=== PATIENT | male | born 1970 | race African-American/Black ===

== ENCOUNTER → 2019-05-23 | Outpatient (CLI) | payer OTHER ==
--- NOTE | 2019-05-23 15:12 | XR ---
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 Facet arthropathy lower lumba r spine. Mild degenerative disc disease L5-S1. Vertebral body heights are preserved. IMPRESSION: 1. Mild degenerative disc disease L5-S1 and some degenerative changes at a left L5-S1 assimilation mark anthony int. 2. No vertebral compression collapse or malalignment.
== END | disposition home or self-care (01) ==
LOC: LABWHC1 10:44
PROVIDERS: ATTEND Internal Medicine
DX: M51.37 Other intervertebral disc degeneration, lumbosacral region (principal); M47.817 Spondylosis without myelopathy or radiculopathy, lumbosacral region
CPT/HCPCS: 72100

== ENCOUNTER 2020-07-18 12:05 | Emergency (ER) | payer OTHER ==
[2020-07-18 12:22] VITALS: TEMP 97.8
[2020-07-18] MEDS ORDERED: ACET/COD 300 MG/30 MG STARTER PACK 6 TAB BTL PO STA (12:35)
[2020-07-18] MEDS ORDERED: HYDROmorphone 1 MG/ML 1 ML SYRINGE IM STA (12:35)
--- NOTE | 2020-07-18 12:39 | ED ---
General Adult HPI - General Chief complaint: Extremity Problem,Nontraumatic Stated complaint: rt leg numbness, nausea, vomiting Time Seen by Provider: 07/18/20 12:08 Source: patient, EMS, RN notes reviewed Mode of arrival: EMS Limitations: no limitations - History of Present Illness Initial comments: Patient is a pleasant 50-year-old male presenting to the emergency Department with complaints of right leg pain. Patient has had intermittent symptoms over the past 8 years since he broke his upper femur and had surgery. Symptoms have been acting up again on him over the past couple of weeks. Patient has seen his doctor for this multiple times. Patient states his doctor only give some Motrin for this. Patient denies weakness. Patient states there is some tingling however denies loss of sensation. No incontinence or retention of bowel or bladder. Patient denies any sciatic or back pain. No fever. Patient did get nauseated secondary to his pain. - Related Data Home Medications Medication Instructions Recorded Confirmed HYDROcodone/APAP 7.5-325MG [[place] 1 tab PO Q8HR PRN 03/28/14 01/22/15 7.5-325] Ibuprofen [Motrin] 400 mg PO Q6HR PRN 08/23/14 01/22/15 Previous Rx's Medication Instructions Recorded Acetaminophen-Codeine 300-30mg 1 each PO Q4H PRN #20 tablet 01/22/15 [Tylenol w/codeine #3] methylPREDNISolone [Medrol] 4 mg PO DIRECTED #1 tab.ds.pk 01/22/15 predniSONE [Deltasone] 20 mg PO BID #10 tab 07/18/20 Allergies Allergy/AdvReac Type Severity Reaction Status Date / Time milk Allergy Nausea & Verified 01/22/15 09:47 Vomiting PASTA Allergy Severe Nausea & Uncoded 01/22/15 09:47 Vomiting SNEEZING & SORE THROAT BLEACH Allergy Rash/Hives Uncoded 01/22/15 09:47 Review of Systems ROS Statement: Those systems with pertinent positive or pertinent negative responses have been documented in the HPI. ROS Other: All systems not noted in ROS Statement are negative. Constitutional: Denies: fever Eyes: Denies: eye pain ENT: Denies: ear pain Respiratory: Denies: cough Cardiovascular: Denies: chest pain Endocrine: Denies: fatigue Gastrointestinal: Denies: abdominal pain Genitourinary: Denies: dysuria Musculoskeletal: Reports: as per HPI. Denies: back pain Skin: Denies: rash Neurological: Denies: weakness Past Medical History Past Medical History: Hypertension, Osteoarthritis (OA) Additional Past Medical History / Comment(s): ,RT KNEE PAIN OFF & ON- SHARP @ [facility],. KIDNEY STONE 2010,SLIP & FALL AUG 2007-YULIYA HIP FX DX,. MIGRAINES, SHINGLES X2 HAD IT LAST IN 2001 History of Any Multi-Drug Resistant Organisms: None Reported Past Surgical History: Joint Replacement Additional Past Surgical History / Comment(s): LT HIP REPLACEMENT 06/2012. RT HIP REPLACEMENT 01/2013 Past Anesthesia/Blood Transfusion Reactions: No Reported Reaction Past Psychological History: Anxiety, Panic Disorder Past Alcohol Use History: None Reported Past Drug Use History: None Reported - Past Family History Father Family Medical History: Hypertension Mother Additional Family Medical History / Comment(s): ARTHRITS, KNEE SX General Exam Limitations: no limitations General appearance: alert, in no apparent distress Head exam: Present: normocephalic Eye exam: Present: normal appearance Neck exam: Present: normal inspection Respiratory exam: Present: normal lung sounds bilaterally Cardiovascular Exam: Present: regular rate, normal rhythm Expanded Peripheral pulses: 2+: Posterior Tibialis (R), Posterior Tibialis (L), Dorsalis Pedis (R), Dorsalis Pedis (L) GI/Abdominal exam: Present: soft. Absent: tenderness, guarding Extremities exam: Present: normal inspection. Absent: tenderness, calf tenderness Back exam: Present: normal inspection. Absent: tenderness, vertebral tenderness Neurological exam: Present: alert. Absent: motor sensory deficit Expanded Sensory exam: Lower Extremity Light Touch: Normal Motor strength exam: RUE: 5, LUE: 5, RLE: 5, LLE: 5 Eye Response: (4) open spontaneously Motor Response: (6) obeys commands Verbal Response: (5) oriented Psychiatric exam: Present: normal affect, normal mood Skin exam: Present: normal color Course Vital Signs 07/18/20 12:06 Temperature 97.8 F Pulse Rate 79 Respiratory 18 Rate Blood Pressure 151/100 O2 Sat by Pulse 92 L Oximetry Disposition Clinical Impression: Pain in right leg Disposition: HOME SELF-CARE Condition: Stable Instructions (If sedation given, give patient instructions): Leg Pain (ED) Additional Instructions: Please follow-up with primary care physician and your orthopedic surgeon in the next day or 2 for recheck. Return for weakness, loss of control of bowel or bladder, loss of sensation, worsening symptoms or any other concerns. Steroid prescription has been sent to your pharmacy Prescriptions: predniSONE [Deltasone] 20 mg PO BID #10 tab Is patient prescribed a controlled substance at d/c from ED?: No Referrals: Bienvenido Parker MD [Primary Care Provider] - 1-2 days Ortega White DO [Doctor of Osteopathic Medicine] - 1-2 days Time of Disposition: 12:41
[2020-07-18 12:54] VITALS: BP 141/98; PULSE 81; RESP 16
== END 2020-07-18 13:14 | disposition home or self-care (01) ==
LOC: EC 12:05
DX: M79.604 Pain in right leg (principal); M19.90 Unspecified osteoarthritis, unspecified site; Z91.011 Allergy to milk products; Z91.018 Allergy to other foods; Z91.048 Other nonmedicinal substance allergy status; Z96.643 Presence of artificial hip joint, bilateral
CPT/HCPCS: 99284; 96372; J1170

== ENCOUNTER → 2020-08-31 | Outpatient (CLI) | payer OTHER ==
--- NOTE | 2020-08-31 14:47 | MR ---
EXAMINATION TYPE: MR knee RT wo con DATE OF EXAM: 08/31/2020 COMPARISON: None HISTORY: R knee pain TECHNIQUE: Multiplanar, multisequence imaging of the right knee is performed without IV contrast. FINDINGS: MEDIAL MENISCUS: Anterior and posterior horns are intact without tear. LATERAL MENISCUS: Diminutive posterior horn lateral meniscus which may reflect chronic tear. Anterior horn is unremarkable. CRUCIATE LIGAMENTS: ACL tear of uncertain chronicity. PCL is intact. COLLATERAL LIGAMENTS: The medial collateral ligament and lateral collateral ligament complex are intact and unremarkable. EXTENSOR MECHANISM: Visualized quadriceps and patellar tendons are intact. EFFUSION: No significant suprapatellar joint effusion. POPLITEAL CYST: Multi septated Morrell's cyst measuring 2.2 cm. TRICOMPARTMENT SPACES: Mild narrowing medial tibiofemoral joint space. CARTILAGE: Intact BONE MARROW SIGNAL: 3 or 4 areas of abnormal signal within the distal femoral diaphysis and metaphyse al regions felt to reflect bone infarcts the largest of which measures 7.4 cm in length. OTHER: No additional significant abnormality is appreciated. IMPRESSION: 1. ACL tear of uncertain chronicity. 2. Probable chronic tear posterior horn lateral meniscus. 3. Morrell's cyst. 4. 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
== END | disposition home or self-care (01) ==
LOC: RADMRIMAIN 12:39
PROVIDERS: ATTEND Internal Medicine
DX: S83.511A Sprain of anterior cruciate ligament of right knee, initial encounter (principal)

== ENCOUNTER 2020-09-12 12:37 | Observation (INO) | payer OTHER ==
--- NOTE | 2020-09-12 13:00 | ED ---
General Adult HPI - General Chief complaint: Chest Pain Stated complaint: Chest Pain Time Seen by Provider: 09/12/20 12:38 Source: patient, RN notes reviewed, old records reviewed Mode of arrival: EMS Limitations: no limitations - History of Present Illness Initial comments: 50-year-old male presenting for evaluation of chest pain. Patient had left-sharif ed chest pain radiating to the left arm with associated nausea. No diaphoresis. No vomiting. Pain began approximately one hour prior to arrival while at rest. There is no previous history of CAD. No associated dyspnea. Patient chest pain-free at the time my evaluation after being given aspirin and nitroglycerin by EMS. He had a previous stress test in 2014 which was reported as negative. No cough or fever. - Related Data Home Medications Medication Instructions Recorded Confirmed DULoxetine HCL [Cymbalta] 60 mg PO DAILY 09/12/20 09/12/20 Metoprolol Succinate (ER) [Toprol 50 mg PO BID 09/12/20 09/12/20 Xl] Pantoprazole Sodium [Protonix] 40 mg PO DAILY 09/12/20 09/12/20 Allergies Allergy/AdvReac Type Severity Reaction Status Date / Time milk Allergy Nausea & Verified 09/12/20 13:12 Vomiting PASTA Allergy Severe Nausea & Uncoded 09/12/20 13:12 Vomiting SNEEZING & SORE THROAT BLEACH Allergy Rash/Hives Uncoded 09/12/20 13:12 Review of Systems ROS Statement: Those systems with pertinent positive or pertinent negative responses have been documented in the HPI. ROS Other: All systems not noted in ROS Statement are negative. Past Medical History Past Medical History: Hypertension, Osteoarthritis (OA) Additional Past Medical History / Comment(s): ,RT KNEE PAIN OFF & ON- SHARP @ [facility],. KIDNEY STONE 2010,SLIP & FALL AUG 2007-YULIYA HIP FX DX,. MIGRAINES, SHINGLES X2 HAD IT LAST IN 2001 History of Any Multi-Drug Resistant Organisms: None Reported Past Surgical History: Joint Replacement Additional Past Surgical History / Comment(s): LT HIP REPLACEMENT 06/2012. RT HIP REPLACEMENT 01/2013 Past Anesthesia/Blood Transfusion Reactions: No Reported Reaction Past Psychological History: Anxiety, Panic Disorder Smoking Status: Former smoker Past Alcohol Use History: Occasional Past Drug Use History: None Reported - Past Family History Father Family Medical History: Hypertension Mother Additional Family Medical History / Comment(s): ARTHRITS, KNEE SX General Exam Limitations: no limitations General appearance: alert, in no apparent distress Head exam: Present: atraumatic, normocephalic Eye exam: Present: normal appearance, PERRL ENT exam: Present: normal exam Neck exam: Present: normal inspection. Absent: tenderness, meningismus Respiratory exam: Present: normal lung sounds bilaterally. Absent: respiratory distress, wheezes Cardiovascular Exam: Present: regular rate, normal rhythm GI/Abdominal exam: Present: soft. Absent: distended, tenderness, guarding Extremities exam: Present: normal inspection, normal capillary refill. Absent: pedal edema Neurological exam: Present: alert, oriented X3, CN II-XII intact. Absent: motor sensory deficit Psychiatric exam: Present: normal affect, normal mood Skin exam: Present: warm, dry, intact. Absent: cyanosis, diaphoretic Course Vital Signs 09/12/20 09/12/20 09/12/20 12:38 12:42 13:00 Temperature 98.0 F Pulse Rate 93 92 91 Respiratory 18 18 16 Rate Blood Pressure 141/100 141/100 O2 Sat by Pulse 97 83 L 97 Oximetry 09/12/20 13:30 Temperature Pulse Rate 86 Respiratory 18 Rate Blood Pressure 135/92 O2 Sat by Pulse 99 Oximetry - Reevaluation(s) Reevaluation #1: 09/12/20 12:[address] Hernandez who is able to evaluate the EKG, he does not see any ST segment elevation, recommends usual treatment for ACS. Reevaluation #2: 09/12/20 13:30 Patient reevaluated, resting comfortably, chest pain-free. Cardiology is in the room evaluating the patient. EKG Findings - EKG Comments: EKG Findings:: First EKG at 1238, normal sinus rhythm, T-wave in reality in the inferior leads, 3 and aVF, question ST segment elevation in V2 and V3, no reciprocal ST segment depression. Rate of 93, RI interval 124, QRS duration 88, QTC 420, repeat EKG. At 1246, unchanged, normal sinus rhythm, persistent T- wave inversion in lead 3 and aVF, no ST segment depression, rate of 90, RI interval 126, QRS duration 88, QTC 4:30 Medical Decision Making - Medical Decision Making 50-year-old male presenting with chest pain, rating to the left arm. EKG sinus rhythm, there was concern for ischemic changes and this was discussed with cardiology, recommend heparin, this has been initiated emergency partner. Patient given aspirin nitroglycerin by EMS prior to arrival. He remains chest pain-free while in the emergency department. Chest x-ray negative for acute cardiopulmonary findings. Laboratory testing does reveal stable hemoglobin, normal electrolytes, he has a transaminitis and does admit to daily alcohol consumption. No abdominal pain. No abdominal tenderness. Patient has a negative initial troponin, he will be admitted with cardiology on consultation. Case is discussed with the admitting physician Dr. Mazariegos. - Lab Data Result diagrams: 09/12/20 12:45 09/12/20 12:45 Lab Results 09/12/20 09/12/20 09/12/20 Range/Units 12:45 12:45 12:45 WBC 3.4 L (3.8-10.6) k/uL RBC 3.99 L (4.30-5.90) m/uL Hgb 13.7 (13.0-17.5) gm/dL Hct 39.7 (39.0-53.0) % MCV 99.4 (80.0-100.0) fL MCH 34.3 (25.0-35.0) pg MCHC 34.5 (31.0-37.0) g/dL RDW 12.2 (11.5-15.5) % Plt Count 195 (150-450) k/uL MPV 7.3 Neutrophils % 65 % Lymphocytes % 22 % Monocytes % 5 % Eosinophils % 5 % Basophils % 1 % Neutrophils # 2.2 (1.3-7.7) k/uL Lymphocytes # 0.8 L (1.0-4.8) k/uL Monocytes # 0.2 (0-1.0) k/uL Eosinophils # 0.2 (0-0.7) k/uL Basophils # 0.0 (0-0.2) k/uL PT 9.8 (9.0-12.0) sec INR 0.9 (<1.2) APTT 22.0 (22.0-30.0) sec Sodium 135 L (137-145) mmol/L Potassium 4.9 (3.5-5.1) mmol/L Chloride 98 (98-107) mmol/L Carbon Dioxide 29 (22-30) mmol/L Anion Gap 8 mmol/L BUN 6 L (9-20) mg/dL Creatinine 0.96 (0.66-1.25) mg/dL Est GFR (CKD-EPI)AfAm >90 (>60 ml/min/1.73 sqM) Est GFR (CKD-EPI)NonAf >90 (>60 ml/min/1.73 sqM) Glucose 113 H (74-99) mg/dL Calcium 9.4 (8.4-10.2) mg/dL Magnesium 2.0 (1.6-2.3) mg/dL Total Bilirubin 1.3 (0.2-1.3) mg/dL AST 379 H (17-59) U/L ALT 196 H (4-49) U/L Alkaline Phosphatase 88 (38-126) U/L Troponin I (0.000-0.034) ng/mL NT-Pro-B Natriuret Pep pg/mL Total Protein 8.1 (6.3-8.2) g/dL Albumin 4.3 (3.5-5.0) g/dL Amylase (30-110) U/L Lipase (23-300) U/L 09/12/20 09/12/20 09/12/20 Range/Units 12:45 12:45 12:45 WBC (3.8-10.6) k/uL RBC (4.30-5.90) m/uL Hgb (13.0-17.5) gm/dL Hct (39.0-53.0) % MCV (80.0-100.0) fL MCH (25.0-35.0) pg MCHC (31.0-37.0) g/dL RDW (11.5-15.5) % Plt Count (150-450) k/uL MPV Neutrophils % % Lymphocytes % % Monocytes % % Eosinophils % % Basophils % % Neutrophils # (1.3-7.7) k/uL Lymphocytes # (1.0-4.8) k/uL Monocytes # (0-1.0) k/uL Eosinophils # (0-0.7) k/uL Basophils # (0-0.2) k/uL PT (9.0-12.0) sec INR (<1.2) APTT (22.0-30.0) sec Sodium (137-145) mmol/L Potassium (3.5-5.1) mmol/L Chloride (98-107) mmol/L Carbon Dioxide (22-30) mmol/L Anion Gap mmol/L BUN (9-20) mg/dL Creatinine (0.66-1.25) mg/dL Est GFR (CKD-EPI)AfAm (>60 ml/min/1.73 sqM) Est GFR (CKD-EPI)NonAf (>60 ml/min/1.73 sqM) Glucose (74-99) mg/dL Calcium (8.4-10.2) mg/dL Magnesium (1.6-2.3) mg/dL Total Bilirubin (0.2-1.3) mg/dL AST (17-59) U/L ALT (4-49) U/L Alkaline Phosphatase (38-126) U/L Troponin I <0.012 (0.000-0.034) ng/mL NT-Pro-B Natriuret Pep 24 pg/mL Total Protein (6.3-8.2) g/dL Albumin (3.5-5.0) g/dL Amylase 43 (30-110) U/L Lipase 140 (23-300) U/L Disposition Clinical Impression: Unstable angina pectoris Disposition: ADMITTED IP TO THIS [facility] Condition: Stable Is patient prescribed a controlled substance at d/c from ED?: No Decision to Admit Reason: Admit from EC Decision Date: 09/12/20 Decision Time: 15:09
[2020-09-12 13:02] LABS: Basophils % (A) 1 %; Eosinophils # (A) 0.2 k/uL (0-0.7); Eosinophils % (A) 5 %; HCT 39.7 % (39.0-53.0); HGB 13.7 gm/dL (13.0-17.5); Lymphocytes # (A) 0.8 k/uL (1.0-4.8); Lymphocytes % (A) 22 %; MCH 34.3 pg (25.0-35.0); MCHC 34.5 g/dL (31.0-37.0); MCV 99.4 fL (80.0-100.0); Mean Platelet Volume 7.3; Monocytes # (A) 0.2 k/uL (0-1.0); Monocytes % (A) 5 %; Neutrophils # (A) 2.2 k/uL (1.3-7.7); Neutrophils % (A) 65 %; Platelet Count 195 k/uL (150-450); RBC 3.99 m/uL (4.30-5.90); RDW 12.2 % (11.5-15.5); WBC 3.4 k/uL (3.8-10.6)
[2020-09-12 13:14] LABS: ALT 196 U/L (4-49); African American GFR (CKD) >90 (>60 ml/min/1.73 sqM); Anion Gap 8 mmol/L; Blood Urea Nitrogen 6 mg/dL (9-20); Calcium 9.4 mg/dL (8.4-10.2); Carbon Dioxide 29 mmol/L (22-30); Chloride 98 mmol/L (98-107); Glucose 113 mg/dL (74-99); Non-African American GFR(CKD) >90 (>60 ml/min/1.73 sqM); Sodium 135 mmol/L (137-145); Total Bilirubin 1.3 mg/dL (0.2-1.3)
[2020-09-12 13:19] LABS: AST 379 U/L (17-59); Albumin 4.3 g/dL (3.5-5.0); Alkaline Phosphatase 88 U/L (38-126); Potassium 4.9 mmol/L (3.5-5.1); Total Protein 8.1 g/dL (6.3-8.2)
[2020-09-12 13:28] LABS: INR 0.9 (<1.2); Prothrombin Time 9.8 sec (9.0-12.0)
[2020-09-12] MEDS ORDERED: HEPARIN SODIUM,PORCINE 5,000 UNIT/ML 1 ML VIAL IV PRN (13:29)
[2020-09-12] MEDS ORDERED: HEPARIN SODIUM,PORCINE 5,000 UNIT/ML 1 ML VIAL IV ONE (13:29)
[2020-09-12] MEDS ORDERED: HEPARIN SOD,PORK IN 0.45% NACL 25,000 UNIT in 0.45% NACL 1 250ML.BAG IV SCH (13:30)
[2020-09-12] MEDS ORDERED: ONDANSETRON 4 MG/2 ML VIAL IVP PRN (14:00)
[2020-09-12] MEDS ORDERED: ACETAMINOPHEN TAB 325 MG TAB PO PRN (14:00)
[2020-09-12] MEDS ORDERED: NALOXONE 0.4 MG/ML 1 ML VIAL IV PRN (14:00)
[2020-09-12] MEDS ORDERED: MORPHINE SULFATE 4 MG/ML SYRINGE IV PRN (14:00)
[2020-09-12 14:01] LABS: Amylase 43 U/L (30-110); Lipase 140 U/L (23-300)
[2020-09-12] MEDS: NITROGLYCERIN OINT 1 INCH/GM PACKET TOPICAL SCH ×2 (14:04→22:04)
--- NOTE | 2020-09-12 14:38 | XR ---
EXAMINATION TYPE: XR chest 1V portable DATE OF EXAM: 09/12/2020 COMPARISON: Chest x-ray August 22, 2014 HISTORY: Chest pain and left arm numbness TECHNIQUE: Single frontal view of the chest is obtained. FINDINGS: Diminished inspiration on current study. There is no suspicious new focal air space opacity , pleural effusion, or pneumothorax seen. The cardiac silhouette size remains within normal limits. Multiple overlying EKG leads are in current study. The osseous structures are intact. IMPRESSION: Poor inspiration, no acute process.
--- NOTE | 2020-09-12 14:52 | US ---
EXAMINATION TYPE: US gallbladder DATE OF EXAM: 09/12/2020 COMPARISON: None CLINICAL HISTORY: 50-year-old male pain/transaminitis. 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 FINDINGS: EXAM MEASUREMENTS: Liver Length: 16.2 cm Gallbladder Wall: 0.2 cm CBD: 0.3 cm Right Kidney: 13.4 x 5.7 x 4.3 cm Pancreas: Only a small portion of the pancreatic body is seen. Remainder is obscured by shadowing fr om bowel gas. Liver: Echogenic and attenuating. Large left lobe extends far to the left of midline Gallbladder: Distended to the upper limits of normal at 8 x 3.4 cm. No wall thickening, shadowing ca lculi, or surrounding fluid. Evidence for sonographic Edwards's sign: no CBD: wnl Right Kidney: No hydronephrosis. IMPRESSION: 1. Moderate to severe hepatic steatosis. Correlate with LFTs, liver profile, and patient risk factors . 2. No gallstones or biliary ductal dilatation. 3. Limited visualization of the pancreas.
--- NOTE | 2020-09-12 16:19 | P.CRDCN ---
History of Present Illness Consult date: 09/12/20 History of present illness: CHIEF COMPLAINT: Chest pain HISTORY OF PRESENT ILLNESS: This is a 50-year-old male with a past medical history significant for hypertension, nicotine dependence, and daily alcohol use. Patient does not follow with a counselor aide. We have been asked to see the patient in consultation for chest pain. Patient examined this afternoon in the emergency room. Patient states he was sitting at home talking to his girlfriend when he began having a stabbing pain in his left shoulder. He states the pain then radiated to his left armpit and left chest. He denied any nausea or vomiting. Denied shortness of breath. Denied dizziness or lightheadedness. He states the pain was not worse with deep inspiration. He does report increased pain when he was moving his left arm. He states the pain lasted for approximately one hour and then he called EMS. Patient received aspirin and sublingual nitro in route to the hospital which relieved his pain. At the time of examination, the patient denies any further episodes of chest pain. Patient denies any family history of coronary artery disease. Patient reports drinking 2 beers daily on the weekdays and 3-4 beers a day on the weekends. He reports he was smoking 2-3 cigars a day but quit 3 weeks ago. DIAGNOSTICS: EKG reveals sinus mechanism with T-wave inversions inferiorly Chest xray negative for acute process Laboratory data: WBC 3.4. Hemoglobin 13.7. Platelet count 195. Sodium 135. Potassium 4.9. BUN 6. Creatinine 0.96. Magnesium 2.0. Troponin negative 1. BNP 24. AST 379. ALT 196. Current home cardiac medications include metoprolol succinate 50 kg twice a day Echocardiogram completed in 2014 revealed ejection fraction 55-60% Patient underwent stress echocardiogram in 2015 which was negative for stress- induced ischemia REVIEW OF SYSTEMS: At the time of my exam: CONSTITUTIONAL: Denies fever or chills. HEENT: Denies blurred vision, vision changes, or eye pain. Denies hemoptysis CARDIOVASCULAR: Denies chest pain, orthopnea, PND or palpitations RESPIRATORY: No shortness of breath. GASTROINTESTINAL: Denies abdominal pain. Denies nausea or vomiting. HEMATOLOGIC: Denies bleeding disorders. GENITOURINARY: Denies any blood in urine. SKIN: Denies pruitis. Denies rash. PHYSICAL EXAM: VITAL SIGNS: Reviewed. GENERAL: Well-developed in no acute distress. HEENT: Head is normocephalic. Pupils are equal, round. Sclerae anicteric. Mucous membranes of the mouth are moist. Neck supple. No JVD or thyromegaly LUNGS: Respirations even and unlabored. Lungs essentially clear to auscultation bilaterally. HEART: Regular rate and rhythm. S1 and S2 heard. ABDOMEN: Soft. Nondistended. Nontender. EXTREMITIES: Normal range of motion. No clubbing or cyanosis. Peripheral pulses intact. No lower extremity edema NEUROLOGIC: Awake and alert. Oriented x 3. ASSESSMENT: Unstable angina Hypertension Transaminitis, likely secondary to daily alcohol use Daily alcohol use Former daily cigar smoker, quit 3 weeks ago PLAN: Obtain 2-D echo to assess cardiac structure and function Continue to trend troponin levels Begin IV heparin Add nitro paste 0.5 inches every 8 hours and aspirin 81mg daily Resume home dose of metoprolol succinate Obtain lipid panel Continue to monitor LFTs Absence from alcohol recommended Further recommendations pending patient's course Nurse practitioner note has been reviewed by physician. Signing provider agrees with the documented findings, assessment, and plan of care. Past Medical History Past Medical History: Hypertension, Osteoarthritis (OA) Additional Past Medical History / Comment(s): ,RT KNEE PAIN OFF & ON- SHARP @ [facility],. KIDNEY STONE 2010,SLIP & FALL AUG 2007-YULIYA HIP FX DX,. MIGRAINES, SHINGLES X2 HAD IT LAST IN 2001 History of Any Multi-Drug Resistant Organisms: None Reported Past Surgical History: Joint Replacement Additional Past Surgical History / Comment(s): LT HIP REPLACEMENT 06/2012. RT HIP REPLACEMENT 01/2013 Past Anesthesia/Blood Transfusion Reactions: No Reported Reaction Past Psychological History: Anxiety, Panic Disorder Smoking Status: Former smoker Past Alcohol Use History: Occasional Past Drug Use History: None Reported - Past Family History Father Family Medical History: Hypertension Mother Additional Family Medical History / Comment(s): ARTHRITS, KNEE SX Medications and Allergies Home Medications Medication Instructions Recorded Confirmed Type DULoxetine HCL [Cymbalta] 60 mg PO DAILY 09/12/20 09/12/20 History Metoprolol Succinate (ER) [Toprol 50 mg PO BID 09/12/20 09/12/20 History Xl] Pantoprazole Sodium [Protonix] 40 mg PO DAILY 09/12/20 09/12/20 History Allergies Allergy/AdvReac Type Severity Reaction Status Date / Time milk Allergy Nausea & Verified 09/12/20 13:12 Vomiting PASTA Allergy Severe Nausea & Uncoded 09/12/20 13:12 Vomiting SNEEZING & SORE THROAT BLEACH Allergy Rash/Hives Uncoded 09/12/20 13:12 Physical Exam Vitals: Vital Signs Temp Pulse Resp BP Pulse Ox 09/12/20 15:30 91 16 131/95 96 09/12/20 15:00 92 18 142/92 99 09/12/20 14:30 86 18 100 09/12/20 14:00 84 18 140/96 99 09/12/20 13:30 86 18 135/92 99 09/12/20 13:00 91 16 141/100 97 09/12/20 12:42 92 18 83 L 09/12/20 12:38 98.0 F 93 18 141/100 97 Intake and Output 09/12/20 09/12/20 09/12/20 06:59 14:59 22:59 Other: Weight 100.5 kg Results 09/12/20 12:45 09/12/20 12:45 Cardiac Enzymes 09/12/20 09/12/20 Range/Units 12:45 12:45 AST 379 H (17-59) U/L Troponin I <0.012 (0.000-0.034) ng/mL Coagulation 09/12/20 Range/Units 12:45 PT 9.8 (9.0-12.0) sec APTT 22.0 (22.0-30.0) sec CBC 09/12/20 Range/Units 12:45 WBC 3.4 L (3.8-10.6) k/uL RBC 3.99 L (4.30-5.90) m/uL Hgb 13.7 (13.0-17.5) gm/dL Hct 39.7 (39.0-53.0) % Plt Count 195 (150-450) k/uL Comprehensive Metabolic Panel 09/12/20 Range/Units 12:45 Sodium 135 L (137-145) mmol/L Potassium 4.9 (3.5-5.1) mmol/L Chloride 98 (98-107) mmol/L Carbon Dioxide 29 (22-30) mmol/L BUN 6 L (9-20) mg/dL Creatinine 0.96 (0.66-1.25) mg/dL Glucose 113 H (74-99) mg/dL Calcium 9.4 (8.4-10.2) mg/dL AST 379 H (17-59) U/L ALT 196 H (4-49) U/L Alkaline Phosphatase 88 (38-126) U/L Total Protein 8.1 (6.3-8.2) g/dL Albumin 4.3 (3.5-5.0) g/dL Current Medications Generic Name Dose Route Start Last Admin Trade Name Freq PRN Reason Stop Dose Admin Acetaminophen 650 mg 09/12/20 14:00 Acetaminophen Tab 325 Mg Tab PO Q6HR PRN Mild Pain or Fever > 100.5 Aspirin 81 mg 09/13/20 09:00 Aspirin 81 Mg PO DAILY ULISSES Heparin Sodium (Porcine) 0 unit 09/12/20 13:29 Heparin Sodium,Porcine 5,000 Unit/Ml 1 Ml Vial IV PER PROTOCOL PRN Low PTT Protocol Heparin Sodium/Sodium Chloride 250 mls @ 10 mls/hr 09/12/20 13:30 09/12/20 14:01 25,000 unit/ Sodium Chloride IV 9.95 units/kg/hr .Q24H ULISSES 10 mls/hr Administration Protocol 9.95 UNITS/KG/HR Metoprolol Succinate 50 mg 09/12/20 21:00 Metoprolol Succinate (Er) 50 Mg Tab.Er.24h PO BID ULISSES Morphine Sulfate 4 mg 09/12/20 14:00 Morphine Sulfate 4 Mg/Ml Syringe IV Q4HR PRN Severe Pain Naloxone HCl 0.2 mg 09/12/20 14:00 Naloxone 0.4 Mg/Ml 1 Ml Vial IV Q2M PRN Opioid Reversal Nitroglycerin 0.5 inch 09/12/20 14:00 09/12/20 14:04 Nitroglycerin Oint 1 Inch/Gm Packet TOPICAL 0.5 inch Q8H ULISSES Administration Ondansetron HCl 4 mg 09/12/20 14:00 Ondansetron 4 Mg/2 Ml Vial IVP Q8HR PRN Nausea And Vomiting Intake and Output 09/12/20 09/12/20 09/12/20 06:59 14:59 22:59 Other: Weight 100.5 kg Patient Weight 09/13/20 06:59 Weight 100.5 kg 09/12/20 12:45 09/12/20 12:45
[2020-09-12 18:35] LABS: Cholesterol 168 mg/dL (<200); HDL Cholesterol 55 mg/dL (40-60); LDL Cholesterol,Calculated 77 mg/dL (0-99); Triglycerides 181 mg/dL (<150)
[2020-09-12] MEDS ORDERED: METOPROLOL TARTRATE 12.5 MG TAB PO SCH (21:00)
[2020-09-12] MEDS ORDERED: LORazepam 2 MG/ML INJ IV PRN (21:44)
[2020-09-12] MEDS ORDERED: Potassium Replacement Protocol 1 EACH MISC MISCELLANE PRN (21:45)
[2020-09-12] MEDS ORDERED: Magnesium Replacement Protocol 1 EACH MISC MISCELLANE PRN (21:45)
--- NOTE | 2020-09-12 21:55 | P.HPIM ---
History of Present Illness This is a pleasant 50 old -[place] male with past medical history of hypertension and osteoarthritis. He is a patient of Dr. Parker. Presents because of chest pain of one-day duration in the left upper chest radiating to the left shoulder prepped like 4/10 in severity, nonspecific in character, not associated with dyspnea or sweating or palpitation or dizziness. patient denies history of trauma or fall. He had similar pain in 2004 at that time he was treated conservatively and thought it is due to stress He denies any other complaints no dizziness, no abdominal pain, no diarrhea or change in urine habits. No fever. No coughing. He is a cigar smoker but quit 1 week ago, he drinks 3 beers a day with no leak or or wine. No illicit drugs Hemodynamically stable. He has mild low white cell count of 3.4K. Rest of CBC is unremarkable. Liver enzymes are elevated with AST 379 and ALT 196. Troponin Are Negative with Less Than 0.012. Lipase Is Normal Chest x-ray: No acute process. EKG showed normal sinus rhythm at 90 BPM with no significant ST-T changes except for mild T-wave and conversion and lead III Gallbladder ultrasound showing moderate to severe hepatic steatosis Review of Systems CONSTITUTIONAL: No fever, no malaise, no fatigue. HEENT: No recent visual problems or hearing problems. Denied any sore throat. CARDIOVASCULAR: No orthopnea, PND, no palpitations, no syncope. PULMONARY: No shortness of breath, no cough, no hemoptysis. GASTROINTESTINAL: No diarrhea, no nausea, no vomiting, no abdominal pain. Normoactive bowel sounds. NEUROLOGICAL: No headaches, no weakness, no numbness. HEMATOLOGICAL: Denies any bleeding or petechiae. GENITOURINARY: Denies any burning micturition, frequency, or urgency. MUSCULOSKELETAL/RHEUMATOLOGICAL: Denies any joint pain, swelling, or any muscle pain. ENDOCRINE: Denies any polyuria or polydipsia. Past Medical History Past Medical History: Hypertension, Osteoarthritis (OA) Additional Past Medical History / Comment(s): ,RT KNEE PAIN OFF & ON- SHARP @ TIMES,. KIDNEY STONE 2010,SLIP & FALL AUG 2007-YULIYA HIP FX DX,. MIGRAINES, SHINGLES X2 HAD IT LAST IN 2001 History of Any Multi-Drug Resistant Organisms: None Reported Past Surgical History: Joint Replacement Additional Past Surgical History / Comment(s): LT HIP REPLACEMENT 06/2012. RT HIP REPLACEMENT 01/2013 Past Anesthesia/Blood Transfusion Reactions: No Reported Reaction Past Psychological History: Anxiety, Panic Disorder Smoking Status: Former smoker Past Alcohol Use History: Occasional Past Drug Use History: None Reported - Past Family History Father Family Medical History: Hypertension Mother Additional Family Medical History / Comment(s): ARTHRITS, KNEE SX Medications and Allergies Home Medications Medication Instructions Recorded Confirmed Type DULoxetine HCL [Cymbalta] 60 mg PO DAILY 09/12/20 09/12/20 History Metoprolol Succinate (ER) [Toprol 50 mg PO BID 09/12/20 09/12/20 History Xl] Pantoprazole Sodium [Protonix] 40 mg PO DAILY 09/12/20 09/12/20 History Allergies Allergy/AdvReac Type Severity Reaction Status Date / Time milk Allergy Nausea & Verified 09/12/20 13:12 Vomiting PASTA Allergy Severe Nausea & Uncoded 09/12/20 13:12 Vomiting SNEEZING & SORE THROAT BLEACH Allergy Rash/Hives Uncoded 09/12/20 13:12 Physical Exam Vitals: Vital Signs Temp Pulse Resp BP Pulse Ox 09/12/20 13:30 86 18 135/92 99 09/12/20 13:00 91 16 141/100 97 09/12/20 12:42 92 18 83 L 09/12/20 12:38 98.0 F 93 18 141/100 97 Intake and Output 09/11/20 09/12/20 09/12/20 22:59 06:59 14:59 Other: Weight 100.5 kg GENERAL: The patient is alert and oriented x3, not in any acute distress. Well developed, well nourished. HEENT: Pupils are round and equally reacting to light. EOMI. No scleral icterus. No conjunctival pallor. Normocephalic, atraumatic. No pharyngeal erythema. No thyromegaly. CARDIOVASCULAR: S1 and S2 present. No murmurs, rubs, or gallops. PULMONARY: Chest is clear to auscultation, no wheezing or crackles. ABDOMEN: Soft, nontender, nondistended, normoactive bowel sounds. No palpable organomegaly. MUSCULOSKELETAL: No joint swelling or deformity. EXTREMITIES: No cyanosis, clubbing, or pedal edema. NEUROLOGICAL: Gross neurological examination did not reveal any focal deficits. SKIN: No rashes. no petechiae. Results CBC & Chem 7: 09/12/20 12:45 09/12/20 12:45 Labs: Abnormal Lab Results - Last 24 Hours (Table) 09/12/20 09/12/20 Range/Units 12:45 12:45 WBC 3.4 L (3.8-10.6) k/uL RBC 3.99 L (4.30-5.90) m/uL Lymphocytes # 0.8 L (1.0-4.8) k/uL Sodium 135 L (137-145) mmol/L BUN 6 L (9-20) mg/dL Glucose 113 H (74-99) mg/dL AST 379 H (17-59) U/L ALT 196 H (4-49) U/L Assessment and Plan Assessment: Unstable angina Alcohol abuse Alcoholic hepatitis with AST 20 ALT ratio is 2:1 Nicotine use disorder Hypertension Osteoarthritis Plan: This is a pleasant 50 years old male who presents with unstable angina. Continue with heparin drip and aspirin as per cardiology recommendation. Check echocardiogram. Also we'll check a shoulder x-ray. Also we'll check acute hepatitis panel Labs and medication were reviewed.. Continue same treatment. Continue with symptomatic treatment. Resume home medication. Monitor lytes and vitals. DVT and GI prophylaxis. Further recommendationsas per clinical course of the patient DVT prophylaxis: heparin GI Prophylaxis: Pepcid Prognosis is guarded
[2020-09-12] MEDS: FAMOTIDINE 20 MG/2 ML VIAL IV SCH (22:03)
[2020-09-12] MEDS: METOPROLOL SUCCINATE (ER) 50 MG TAB.ER.24H PO SCH (22:03)
[2020-09-12] MEDS: THIAMINE 100 MG TAB PO SCH (22:03)
[2020-09-13] MEDS: NITROGLYCERIN OINT 1 INCH/GM PACKET TOPICAL SCH (05:13)
[2020-09-13 06:00] LABS: Hepatitis A Antibody IgM Non-Reactive (Non-Reactive); Hepatitis B Core IgM Non-Reactive (Non-Reactive); Hepatitis B Surface Antigen Non-Reactive (Non-Reactive); Hepatitis C IgG Antibody Non-Reactive (Non-Reactive)
--- NOTE | 2020-09-13 07:39 | XR ---
EXAMINATION TYPE: XR shoulder complete LT DATE OF EXAM: 09/13/2020 COMPARISON: NONE HISTORY: Pain TECHNIQUE: Shoulder examined in 3 projections FINDINGS: The humeral head articulates with the glenoid. The acromio-clavicular junction is normal. No acute fractures or dislocations are evident. A follow up study can be performed 7-10 days from acute trauma for continued pain. IMPRESSION: 1. Normal three-view left Shoulder
[2020-09-13 08:55] LABS: Basophils # (A) 0.03 X 10*3/uL (0.00-0.10); Basophils % (A) 0.8 %; Eosinophils % (A) 5.6 %; HCT 36.9 % (39.6-50.0); HGB 12.9 g/dL (13.0-17.0); Lymphocytes # (A) 1.08 X 10*3/uL (0.90-5.00); Lymphocytes % (A) 30.2 %; MCH 34.6 pg (27.0-32.0); MCV 98.9 fL (80.0-97.0); Mean Platelet Volume 10.7 fL (9.5-12.2); Monocytes # (A) 0.33 X 10*3/uL (0.20-1.00); Monocytes % (A) 9.2 %; Neutrophils # (A) 1.92 X 10*3/uL (1.80-7.70); Neutrophils % (A) 53.6 %; Platelet Count 194 X 10*3/uL (140-440); RBC 3.73 X 10*6/uL (4.40-5.60); RDW 11.9 % (11.5-14.5); WBC 3.58 X 10*3/uL (4.50-10.00)
[2020-09-13] MEDS ORDERED: ASPIRIN 81 MG PO SCH (09:00)
[2020-09-13] MEDS: METOPROLOL SUCCINATE (ER) 50 MG TAB.ER.24H PO SCH (09:23)
[2020-09-13] MEDS: THIAMINE 100 MG TAB PO SCH (10:20)
[2020-09-13] MEDS: FAMOTIDINE 20 MG/2 ML VIAL IV SCH (10:23)
--- NOTE | 2020-09-13 10:26 | P.PN ---
Subjective This is a pleasant 50-year-old -[place] male past medical history significant for hypertension, chronic nicotine dependence and daily alcohol intake. He is seen and examined sitting up in the emergency department in no acute distress. He has had no further symptoms of chest discomfort. He states his breathing is normal. Blood pressure 137/97 heart rate 90 afebrile maintaining oxygen saturation on room air. Laboratory data reviewed, cardiac enzymes negative 3. GENERAL: Well-appearing, well-nourished and in no acute distress. NECK: Supple without JVD or thyromegaly. LUNGS: Breath sounds clear to auscultation bilaterally. Respiration equal and unlabored. No wheezes, rales or rhonchi. HEART: Regular rate and rhythm without murmurs, rubs or gallops. S1 and S2 heard. EXTREMITIES: Normal range of motion, no edema. No clubbing or cyanosis. Peripheral pulses intact. ASSESSMENT Chest pain Transaminitis Hypertension Chronic nicotine dependence Daily alcohol intake PLAN An acute coronary event has been ruled out. Discontinue heparin infusion and Nitropaste. Proceed with stress echocardiogram to assess for stress-induced cardiac ischemia. Echocardiogram has been obtained and will be reviewed. If stress test is normal he may be discharged from a cardiac perspective in follow-up in the office with Dr. Small. Nurse Practitioner note has been reviewed, I agree with a documented findings and plan of care. Patient was seen and examined. Objective - Vital Signs Vital signs: Vital Signs Temp 98.0 F 09/12/20 12:38 Pulse 90 09/13/20 07:29 Resp 18 09/13/20 07:29 BP 137/97 09/13/20 07:29 Pulse Ox 97 09/13/20 07:29 Intake & Output 09/12/20 09/13/20 09/13/20 18:59 06:59 18:59 Intake Total 171.822 Balance 171.822 Weight 100.5 kg Intake: Intake, IV Titration 171.822 Amount Heparin Sod,Pork in 0.45% 171.822 NaCl 25,000 unit In 0.45 % NaCl 1 250ml.bag @ 9.95 UNITS/KG/HR 10 mls/hr IV [facility] Rx#:[id number] - Labs CBC & Chem 7: 09/13/20 04:00 09/12/20 12:45 Labs: Abnormal Lab Results - Last 24 Hours (Table) 09/12/20 09/12/20 09/12/20 Range/Units 12:45 12:45 17:41 WBC 3.4 L (3.8-10.6) k/uL RBC 3.99 L (4.30-5.90) m/uL Hgb (13.0-17.0) g/dL Hct (39.6-50.0) % MCV (80.0-97.0) fL MCH (27.0-32.0) pg Lymphocytes # 0.8 L (1.0-4.8) k/uL APTT (22.0-30.0) sec Sodium 135 L (137-145) mmol/L BUN 6 L (9-20) mg/dL Glucose 113 H (74-99) mg/dL AST 379 H (17-59) U/L ALT 196 H (4-49) U/L Triglycerides 181 H (<150) mg/dL 09/12/20 09/13/20 09/13/20 Range/Units 21:12 04:00 04:00 WBC 3.58 L (3.8-10.6) k/uL RBC 3.73 L (4.30-5.90) m/uL Hgb 12.9 L (13.0-17.0) g/dL Hct 36.9 L (39.6-50.0) % MCV 98.9 H (80.0-97.0) fL MCH 34.6 H (27.0-32.0) pg Lymphocytes # (1.0-4.8) k/uL APTT 32.1 H 88.6 H (22.0-30.0) sec Sodium (137-145) mmol/L BUN (9-20) mg/dL Glucose (74-99) mg/dL AST (17-59) U/L ALT (4-49) U/L Triglycerides (<150) mg/dL
[2020-09-13 10:48] LABS: Albumin 4.2 g/dL (3.80-4.90); Total Protein 6.9 g/dL (6.2-8.2)
[2020-09-13 10:49] LABS: African American GFR (CKD) 81.8 (60.0-200.0); Albumin/Globulin Ratio 1.56 (1.60-3.17); Anion Gap 9.7 mmol/L (4.00-12.00); Bilirubin, Conjugated 0.3 mg/dL (0.20-0.40); Bilirubin,Unconjugated 0.4 mg/dL; Calcium 8.7 mg/dL (8.7-10.3); Carbon Dioxide 24.3 mmol/L (21.6-31.8); Globulin 2.7 g/dL (1.6-3.3); Magnesium 2.1 mg/dL (1.5-2.4); Non-African American GFR(CKD) 70.6 (60.0-200.0); Potassium 4.5 mmol/L (3.5-5.5); Total Bilirubin 0.7 mg/dL (0.3-1.2)
[2020-09-13 11:18] VITALS: BP 145/90; PULSE 83; RESP 16; TEMP 98.5
--- NOTE | 2020-09-13 12:12 | ECHOF ---
Referral Reason:chest pain MEASUREMENTS -------- HEIGHT: 182.9 cm WEIGHT: 90.7 kg BP: RVIDd: 2.5 cm (< 3.3) IVSd: 1.0 cm (0.6 - 1.1) LVIDd: 4.2 cm (3.9 - 5.3) LVPWd: 1.2 cm (0.6 - 1.1) IVSs: 1.5 cm LVIDs: 2.6 cm LVPWs: 1.7 cm LAESV Index (A-L): 11.68 ml/m Ao Diam: 3.4 cm (2.0 - 3.7) AV Cusp: 2.0 cm (1.5 - 2.6) LA Diam: 2.3 cm (2.7 - 3.8) MV EXCURSION: 19.783 mm (> 18.000) MV EF SLOPE: 172 mm/s (70 - 150) EPSS: 1.6 cm MV E García: 0.74 m/s MV DecT: 185 ms MV A García: 0.80 m/s MV E/A Ratio: 0.93 RAP: 5.00 mmHg RVSP: 20.55 mmHg FINDINGS -------- Sinus rhythm. This was a technically adequate study. The left ventricular size is normal. There is borderline concentric left ventricular hypertrophy. Overall left ventricular systolic function is normal with, an EF between 55 - 60 %. The diastolic filling pattern is normal for the age of the patient 8.19. The right ventricle is normal in size. Normal LA size by volume 22+/-6 ml/m2. The right atrial size is normal. The aortic valve is trileaflet, and appears structurally normal. No aortic stenosis or regurgitation. The mitral valve is normal. There is trace mitral regurgitation. The tricuspid valve appears structurally normal. Trace tricuspid regurgitation present. Right terri tricular systolic pressure is normal at < 35 mmHg. There is no pulmonic regurgitation present. The aortic root size is normal. IVC Not well visulized. There is no pericardial effusion. CONCLUSIONS -------- 1. There is borderline concentric left ventricular hypertrophy. 2. Overall left ventricular systolic function is normal with, an EF between 55 - 60 %. 3. The aortic valve is trileaflet, and appears structurally normal. No aortic stenosis or regurgitati on. 4. There is trace mitral regurgitation. 5. Trace tricuspid regurgitation present. 6. There is no pericardial effusion. SHIPPING AND RECEIVING: Hortencia Lopez RDCS
--- NOTE | 2020-09-13 14:35 | ECHOS ---
STRESS ECHOCARDIOGRAM LUMASON: N/A Vial INDICATIONS: Chest pain MEDICATIONS: BASELINE HEART RATE: 88 BASELINE BLOOD PRESSURE: 133/77 MAXIMUM HEART RATE: 170 MAXIMUM BLOOD PRESSURE: 204/83 85% MPHR: 145 100% MPHR: 171 METS: 10.5 MAXIMUM STAGE REACHED: 3 TOTAL EXERCISE TIME: 9 minutes CLINICAL INFORMATION: Baseline rhythm is sinus mechanism, rate of 88, normal axis and intervals, normal electrocardiogram. Baseline blood pressure 133/77 mmHg. Patient exercised on Angel protocol for 9 minutes reaching peak rate 170 beats per minute which is equal to 99% maximum predicted heart rate. Peak blood pressure 204/83 mmHg. Test was terminated secondary to fatigue. There was no chest pain. Electrocardiograph monitoring revealed no evidence of diagnostic ischemic ST deviation. Baseline echocardiogram revealed normal wall motion. At peak exercise, there was normal wall motion augmentation with no hypokinesis or dyskinesis. CONCLUSION: 1. Average exercise tolerance with normal electrocardiograph response to exercise. 2. Normal stress echocardiogram with no evidence of stress-induced ischemia. MMODL / IJN: [id number] /
--- NOTE | 2020-09-13 23:24 | P.DS ---
Providers Date of admission: 09/12/20 14:30 Attending physician: Eulogio Mazariegos MD Consults: 09/12/20 14:01 Consult Physician Urgent Consulting Provider: Anthony Small Consult Reason/Comments: Unstable angina Do you want consulting provider notified?: Already Contacted Primary care physician: Elena Faria [facility] Course: Diagnoses: chest pain TO be Unstable angina on admission by citizenship teacher. Stress test was negative and chest pain is completely resolved prior to discharge Alcohol abuse Alcoholic hepatitis with AST 20 ALT ratio is 2:1 Nicotine use disorder Hypertension Osteoarthritis hospital course: This is a pleasant 50 old -[place] male with past medical history of hypertension and osteoarthritis. He is a patient of Dr. Parker. Presents because of chest pain of one-day duration in the left upper chest radiating to the left shoulder, not associated with dyspnea or sweating or palpitation or dizziness. patient denies history of trauma or fall. He had similar pain in 2004 at that time he was treated conservatively and thought it is due to stress He denies any other complaints no dizziness, no abdominal pain, no diarrhea or change in urine habits. No fever. No coughing. He a cigar smoker but quit 1 week ago, he drinks 3 beers a day with no liquor or or wine. He had elevated liver enzymes trending down slightly. Liver ultrasound: Severe hepatic steatosis, mostly related to alcohol. No gallbladder disease. Acute hepatitis panel was negative. However patient denies any abdominal symptoms, no nausea vomiting. He tolerates diet. Normal bowel movement. Under recommendation a citizenship teacher patient underwent stress test which was negative and patient was cleared for discharge by citizenship teacher On the day of discharge patient remains asymptomatic with his chest pain is completely resolved, no dyspnea. No change in urine or bowel habits. No fever. Patient states that his back to his baseline and he agrees to go home Problems and management plan were discussed with the patient and he verbalized understanding and acceptance Patient was found stable and can be discharged home however he needs follow-up as an outpatient. Patient was instructed to follow up with PCP Dr. Smart within one week and patient agrees. Patient also was instructed to follow up with citizenship teacher Dr. Donato in 2 weeks and he agrees Physical exam Gen: patient is a AAOx3, no distress CVS: S1-S2, RRR, no murmur Lungs: B/L CTA, no wheezing Abdomen: soft, no distention, no tenderness, positive bowel sounds Extremity: no leg edema or induration Time spent more than 35 minutes Patient Condition at Discharge: Stable Plan - Discharge Summary Discharge Rx Participant: No New Discharge Prescriptions: New Thiamine [Vitamin B-1] 100 mg PO DAILY #20 tab Continue Metoprolol Succinate (ER) [Toprol XL] 50 mg PO BID DULoxetine HCL [Cymbalta] 60 mg PO DAILY Pantoprazole Sodium [Protonix] 40 mg PO DAILY Discharge Medication List DULoxetine HCL [Cymbalta] 60 mg PO DAILY 09/12/20 [History] Metoprolol Succinate (ER) [Toprol XL] 50 mg PO BID 09/12/20 [History] Pantoprazole Sodium [Protonix] 40 mg PO DAILY 09/12/20 [History] Thiamine [Vitamin B-1] 100 mg PO DAILY #20 tab 09/13/20 [Rx] Follow up Appointment(s)/Referral(s): Bienvenido Parker MD [Primary Care Provider] - 09/20/20 1:40 pm Anthony Small MD [STAFF PHYSICIAN] - 2 Weeks (The office will call you with an appointment per Michelle) Patient Instructions/Handouts: Chest Pain (DC) Activity/Diet/Wound Care/Special Instructions: Heart healthy diet Activity is restricted until you see your doctor Discharge Disposition: HOME SELF-CARE
== END 2020-09-13 15:06 | disposition home or self-care (01) ==
LOC: EC 12:37 → 6NMEDSUR 14:30
PROVIDERS: ADMIT Internal Medicine; ATTEND Internal Medicine
DX: I20.0 Unstable angina (principal); K76.0 Fatty (change of) liver, not elsewhere classified; F10.10 Alcohol abuse, uncomplicated; K70.10 Alcoholic hepatitis without ascites; I10 Essential (primary) hypertension; M19.90 Unspecified osteoarthritis, unspecified site; G43.909 Migraine, unspecified, not intractable, without status migrainosus; M25.561 Pain in right knee; F41.0 Panic disorder [episodic paroxysmal anxiety]; F17.290 Nicotine dependence, other tobacco product, uncomplicated; Z79.899 Other long term (current) drug therapy; Z91.011 Allergy to milk products; Z91.018 Allergy to other foods; Z91.048 Other nonmedicinal substance allergy status; Z87.442 Personal history of urinary calculi; Z87.81 Personal history of (healed) traumatic fracture; Z96.643 Presence of artificial hip joint, bilateral; Z82.49 Family history of ischemic heart disease and other diseases of the circulatory system; Z82.61 Family history of arthritis
CPT/HCPCS: 96376 ×2; 96375; 93005 ×2; 96365; 96366 ×2; 99285; 36415; 93306; 93351; 83880; 80061; 80053; 80048; 80076; 80074; 82150; 83690; 83735 ×2; 84484; 85025 ×2; 85610; 85730 ×2; 73030; 71045; 76705; G0378 ×2; J1644 ×2

== ENCOUNTER → 2025-02-16 | Outpatient (CLI) | payer OTHER ==
--- NOTE | 2025-02-16 07:53 | US ---
EXAMINATION TYPE: US liver DATE OF EXAM: 02/16/2025 COMPARISON: US CT CLINICAL INDICATION: Male, 55 years old with history of R74.8 ABNORMAL LEVELS OF OTHER SERUM ENZYMES; Elevated LFT's TECHNIQUE: Grayscale and color Doppler imaging of the right upper quadrant was performed. FINDINGS: EXAM MEASUREMENTS: Liver Length: 18.8 cm Gallbladder Wall: 0.2 cm CBD: 0.7 cm Right Kidney: 12.3 x 4.7 x 5.4 cm METAL INSPECTOR NOTES: Pancreas: wnl, tail obscured by overlying bowel gas Liver: Enlarged Gallbladder: wnl Evidence for sonographic Edwards's sign: No CBD: Dilated Right Kidney: No evidence of hydro IMPRESSION: 1. No evidence for acute process. 2. Hepatomegaly. 3. Common bile duct slightly dilated which is new finding from prior in 2020. Consider further evalu ation with MRCP pleural choledocholithiasis. [facility], , 02/16/2025 7:51 AM
== END | disposition home or self-care (01) ==
LOC: RADUSWWP 06:58
PROVIDERS: ATTEND Family Medicine
DX: R16.0 Hepatomegaly, not elsewhere classified (principal); K83.8 Other specified diseases of biliary tract; R74.8 Abnormal levels of other serum enzymes
CPT/HCPCS: 76705